=== PATIENT | female | born 1990 | race Caucasian/White ===

== ENCOUNTER 2018-04-18 08:08 | Inpatient (IN) | payer MEDICAID ==
[2018-04-17 12:15] LABS: ABSOLUTE EOSINOPHILS # (AUTO) 0.1 10^3/uL (0.0-0.6); ABSOLUTE LYMPHOCYTES (AUTO) 2.8 10^3/uL (0.5-4.7); ABSOLUTE MONOCYTES (AUTO) 0.8 10^3/uL (0.1-1.4); ABSOLUTE NEUT (AUTO) 11.3 10^3/uL (1.7-8.2); BASOPHILS % (AUTO) 0.2 % (0-2); EOSINOPHILS % (AUTO) 0.4 % (0-6); HEMATOCRIT 32.5 % (36.0-47.0); HEMOGLOBIN 10.9 g/dL (12.0-15.5); LYMPHOCYTES % (AUTO) 18.8 % (13-45); MEAN CORPUSCULAR HGB CONC 33.4 g/dL (32.0-36.0); MEAN CORPUSCULAR VOLUME 84 fl (80-97); PLATELET COUNT 260 10^3/uL (150-450); RED BLOOD COUNT 3.89 10^6/uL (3.72-5.28); RED CELL DISTRIBUTION WIDTH 15.5 % (11.5-14.0); SEGMENTED NEUTROPHILS % (AUTO) 75.6 % (42-78); TOTAL CELLS COUNTED % (AUTO) 100 %
[2018-04-17 12:42] LABS: APPEARANCE,URINE CLEAR; BILIRUBIN,URINE NEGATIVE (NEGATIVE); COLOR,URINE YELLOW; GLUCOSE, URINE NEGATIVE (NEGATIVE); KETONES,URINE NEGATIVE (NEGATIVE); LEUKOCYTE ESTERASE,URINE SMALL (NEGATIVE); NITRITE,URINE NEGATIVE (NEGATIVE); PROTEIN,URINE NEGATIVE (NEGATIVE); URINE SPECIFIC GRAVITY 1.012; UROBILINOGEN,URINE NEGATIVE mg/dL (<2.0)
[2018-04-17 13:24] LABS: URINE AMPHETAMINES SCREEN NEGATIVE; URINE BARBITURATES SCREEN NEGATIVE; URINE BENZODIAZEPINES SCREEN NEGATIVE; URINE COCAINE SCREEN NEGATIVE; URINE METHADONE SCREEN NEGATIVE; URINE PHENCYCLIDINE SCREEN NEGATIVE
[2018-04-17 13:33] LABS: URINE MARIJUANA (THC) SCREEN UNCONFIRMED POSITIVE
[~2018-04-18 08:08] MED LIST: AZITHROMYCIN 500 MG in DEXTROSE 5%-WATER 250 ML IV PRN; LIDOCAINE 0.5% INJ-PF (5 MG/ML) 50 ML SDV SUBCUT PRN; RINGERS SOLUTION,LACTATED 1,000 ML IV PRN
[2018-04-18] MEDS: LACTATED RINGERS 1000 ML IV PRN ×2 (09:34→17:14)
[2018-04-18] MEDS ORDERED: OXYTOCIN 10 UNIT/ML VIAL ONE (10:26)
[2018-04-18] MEDS ORDERED: FENTANYL CITRATE INJ/PF 100 MCG/2 ML AMPUL ONE (10:26)
[2018-04-18] MEDS ORDERED: OXYTOCIN/NORMAL SALINE 20 UNIT/1,000 ML RTUINJ ONE (10:27)
[2018-04-18] MEDS ORDERED: MIDAZOLAM 2 MG/2 ML INJ ONE ×2 (10:27→11:25)
[2018-04-18] MEDS ORDERED: MORPHINE SULFATE 10 MG/ML INJ ONE (10:27)
[2018-04-18] MEDS ORDERED: ONDANSETRON HCL INJ/PF 4 MG/2 ML SDV ONE (10:27)
[2018-04-18] MEDS ORDERED: BUPIVACAINE HCL/DEX-WATER/PF 15 MG/2 ML AMPULE ONE (10:29)
[2018-04-18] MEDS ORDERED: PROMETHAZINE HCL INJ 25 MG/1 ML VIAL IV PRN ×3 (11:31→12:02)
[2018-04-18] MEDS ORDERED: FENTANYL CITRATE INJ/PF 100 MCG/2 ML AMPUL IV PRN ×3 (11:31)
[2018-04-18] MEDS ORDERED: MORPHINE SULFATE 10 MG/ML INJ IV PRN (11:31)
[2018-04-18] MEDS ORDERED: OXYCODONE-ACETAMINOPHEN 5-325 MG TABLET PO PRN ×3 (11:31→12:02)
[2018-04-18] MEDS ORDERED: MEPERIDINE HCL/PF INJ 25 MG/1 ML DISP.SYRIN IV PRN (11:31)
[2018-04-18] MEDS ORDERED: DIPHENHYDRAMINE HCL 50 MG/ML VIAL IV PRN (11:31)
--- NOTE | 2018-04-18 11:55 | PDOC DELIVERY SUMMARY ---
Delivery Summary - Maternal Hx : II Hx # Term Pregnancies: 1 NAM: 04/25/18 Gestational Age: 39+0 Ruptured Membranes: AROM Time of Rupture: 11:24 Fluids: Clear - Delivery Presentation: Vertex Heart Rate Monitoring: Done Pre-Operatively Support Person Present: Yes - RUPALI NGUYEN([phone]) Location: OR : Scheduled, Repeat Placenta: Within Normal Limits Delivery of Placenta Date: 04/18/18 Delivery of Placenta Time: 11:26 - Medications Type of Anesthesia:: Spinal - Assess and Care Male Delivery of Date: 04/18/18 Delivery of Time: 11:25 at 1 minute: 8 at 5 minutes: 9 Preprinted Number On Band: [id number] Skin to Skin: No To Nursery At: 11:33 Mode of Transport: Bassinet Delivery Weight: 3,920 Delivery Length: 20.5 in - Delivery Personnel Public Services Assistant: JASON OLSEN RN: Charisse SHEFFIELD MD: MARBELLA REBOLLAR
--- NOTE | 2018-04-18 11:59 | Operative Report ---
Operative Report DATE OF SURGERY: 04/18/18 PREOPERATIVE DIAGNOSIS: Patient desires repeat to prevent risk from uterine rupture POSTOPERATIVE DIAGNOSIS: Same OPERATION: Repeat via low transverse uterine incision SURGEON: MARBELLA REBOLLAR ANESTHESIA: Spinal TISSUE REMOVED OR ALTERED: Placenta COMPLICATIONS: None ESTIMATED BLOOD LOSS: 400 cc INTRAOPERATIVE FINDINGS: Viable , normal uterus tubes and ovaries PROCEDURE: Patient was taken to the OR and placed in supine position after her spinal anesthesia. She is prepared and draped in sterile fashion. Miranda was placed for drainage of the bladder. Low transverse incision was made and carried down the level of the fascia. The fascial incision was made with knife and extended bilaterally with curved Stover scissors. The fascia was off the rectus muscles using sharp and blunt dissection. The rectus muscles are in the midline. The peritoneum was entered without incident. Bladder blade was placed in uterine segment was identified. A low transverse incision was made creating a bladder flap. Bladder blade was placed low transverse uterine incision was made with the csafe knife and extended with fingertips. The baby was delivered with some fundal pressure and the assistance of a Kiwi vacuum with pressure in the green with one pull and no pop offs.. Mouth and nose were suctioned free. The cord is doubly clamped and cut. Baby is passed off to the laundry agent in attendance. The placenta was manually extracted with trailing membranes. The uterus was externalized wrapped in a moist lap sponge. Uterine contents wiped free. Uterus was closed with a running locking layer of 0 chromic suture using the second layer to imbricate the first completing a double layer closure of the uterus. The serosa was closed with a running 2-0 chromic stitch. The pelvis was irrigated and suctioned free of fluid the uterus was replaced in the abdomen. The abdominal wall peritoneum was closed with running 2-0 chromic stitch. Fascia was closed with a running 0 Vicryl in 2 segments. Blue's layer was brought together with 0 plain gut stitch and the skin was closed with running subcuticular 4-0 undyed Vicryl stitch. The wound was dressed mother and baby did well.
[2018-04-18] MEDS ORDERED: DIPH/PERTUSS(ACELL)/TETANUS VAC/PF 0.5 ML SYR (>=10YO) IM PRN (12:02)
[2018-04-18] MEDS ORDERED: MEASLES,MUMPS&RUBELLA VACC/PF 0.5 ML VIAL SUBCUT PRN (12:02)
[2018-04-18] MEDS ORDERED: ACETAMINOPHEN 1,000 MG/100 ML RTUPB IV PRN (12:02)
[2018-04-18] MEDS ORDERED: RINGERS SOLUTION,LACTATED 1,000 ML IV PRN (12:02)
[2018-04-18] MEDS ORDERED: OXYTOCIN/NORMAL SALINE 20 UNIT/1,000 ML RTUINJ IV PRN (12:02)
[2018-04-18] MEDS ORDERED: ACETAMINOPHEN 325 MG TABLET PO PRN (12:02)
[2018-04-18] MEDS ORDERED: SIMETHICONE 80 MG TAB.CHEW PO PRN (12:02)
[2018-04-18] MEDS ORDERED: ACETAMINOPHEN 1,000 MG/100 ML RTUPB IV ONE (12:24)
[2018-04-18] MEDS: KETOROLAC TROMETHAMINE INJ/PF 30 MG/1 ML SDV IV SCH ×2 (15:07→21:22)
[2018-04-18] MEDS: HYDROMORPHONE HCL INJ/PF 2 MG/ML AMPULE IV PRN ×2 (15:08→21:56)
[2018-04-18] MEDS: GLYBURIDE 2.5 MG TABLET PO SCH (17:14)
[2018-04-18] MEDS: DOCUSATE SODIUM 100 MG CAPSULE PO SCH (17:14)
[2018-04-18] MEDS: OXYCODONE-ACETAMINOPHEN 5-325 MG TABLET PO PRN (19:10)
[2018-04-19] MEDS: OXYCODONE-ACETAMINOPHEN 5-325 MG TABLET PO PRN ×4 (04:41→19:24)
[2018-04-19 05:40] LABS: HEMATOCRIT 27.7 % (36.0-47.0); HEMOGLOBIN 9.3 g/dL (12.0-15.5); MEAN CORPUSCULAR HEMOGLOBIN 28.2 pg (27.0-33.4); MEAN CORPUSCULAR HGB CONC 33.5 g/dL (32.0-36.0); MEAN CORPUSCULAR VOLUME 84 fl (80-97); PLATELET COUNT 230 10^3/uL (150-450); RED BLOOD COUNT 3.29 10^6/uL (3.72-5.28); RED CELL DISTRIBUTION WIDTH 15.3 % (11.5-14.0); WHITE BLOOD COUNT 14.4 10^3/uL (4.0-10.5)
[2018-04-19] MEDS: KETOROLAC TROMETHAMINE INJ/PF 30 MG/1 ML SDV IV SCH (06:09)
[2018-04-19] MEDS: GLYBURIDE 2.5 MG TABLET PO SCH ×2 (08:15→17:47)
[2018-04-19] MEDS: PRENATAL VITAMIN W DHA CAPSULE PO SCH (09:19)
[2018-04-19] MEDS: DOCUSATE SODIUM 100 MG CAPSULE PO SCH ×2 (09:19→17:47)
--- NOTE | 2018-04-19 09:35 | PDOC PROGRESS REPORT ---
Subjective-OB Progress Note for:: 04/19/18 Physical Exam (OB) Vital Signs: Temp Pulse Resp BP Pulse Ox 97.9 F 71 18 132/79 H 100 04/19/18 08:04 04/19/18 08:04 04/19/18 08:04 04/19/18 08:04 04/19/18 08:04 Intake & Output 04/18/18 04/19/18 04/20/18 06:59 06:59 06:59 Intake Total 3958 Output Total 3050 Balance 908 Weight 113.4 kg - PIH/Pre-Eclampsia DTR's: 1 + Clonus: Negative Headache: Absent Epigastric Pain: No Visual Changes: No - Dressing Removed: No - opsite Incision: Dressing Closure Type: op site - Lochia Lochia Amount: Small 10-25 ml Lochia Color: Rubra/Red - Abdomen Description: Tender, Soft Hernia Present: No Bowel Sounds: Normoactive Flatus Presence: Present Stool: No Fundal Description: Firm, Midline Fundal Height: u/u - u/2 Objective-Diagnostic Laboratory: 04/19/18 05:32 04/19/18 05:32 WBC 14.4 H RBC 3.29 L Hgb 9.3 L Hct 27.7 L MCV 84 MCH 28.2 MCHC 33.5 RDW 15.3 H Plt Count 230
[2018-04-19] MEDS: IBUPROFEN 800 MG TABLET PO SCH ×3 (12:23→23:37)
[2018-04-19] MEDS ORDERED: MEASLES,MUMPS&RUBELLA VACC/PF 0.5 ML VIAL SUBCUT PRN (15:30)
[2018-04-19] MEDS ORDERED: DIPH/PERTUSS(ACELL)/TETANUS VAC/PF 0.5 ML SYR (>=10YO) IM PRN (15:30)
[2018-04-19] MEDS ORDERED: PROMETHAZINE HCL INJ 25 MG/1 ML VIAL IV PRN (15:30)
[2018-04-20] MEDS: OXYCODONE-ACETAMINOPHEN 5-325 MG TABLET PO PRN ×2 (02:25→08:49)
[2018-04-20] MEDS: IBUPROFEN 800 MG TABLET PO SCH ×2 (06:01→13:23)
[2018-04-20 08:44] VITALS: BP 125/79
[2018-04-20] MEDS: GLYBURIDE 2.5 MG TABLET PO SCH (08:48)
[2018-04-20] MEDS: PRENATAL VITAMIN W DHA CAPSULE PO SCH (09:19)
[2018-04-20] MEDS: DOCUSATE SODIUM 100 MG CAPSULE PO SCH (09:19)
--- NOTE | 2018-04-20 09:46 | PDOC PROGRESS REPORT ---
Subjective-OB Progress Note for:: 04/20/18 Subjective: POD#1 s/p Rpt . Type 2 DM, anxiety & depression, hx of +THC, smoker. Pt doing well this morning, denies complaints. Pt desires to go home today Physical Exam (OB) Vital Signs: Temp Pulse Resp BP Pulse Ox 98 F 78 16 125/79 99 04/20/18 08:43 04/20/18 08:43 04/20/18 08:43 04/20/18 08:43 04/20/18 08:43 Intake & Output 04/19/18 04/20/18 04/21/18 06:59 06:59 06:59 Intake Total 3958 750 Output Total 3050 Balance 908 750 - General General Appearance: Appears well, Alert In distress: None - PIH/Pre-Eclampsia DTR's: 1 + Clonus: Negative Headache: Absent Epigastric Pain: No Visual Changes: No - Dressing Removed: No Incision: Dressing Closure Type: op site - Lochia Lochia Amount: Scant < 10 ml Lochia Color: Rubra/Red - Abdomen Description: Tender, Soft, Round Hernia Present: No Fundal Description: Firm, Midline Fundal Height: u/u - u/2 - HEENT Head: Normocephalic - Respiratory Respiratory Status: No respiratory distress Chest Status: Nontender Breath sounds: Clear Chest Palpation: Normal - Cardiovascular Rhythm: Regular Heart Sounds: Normal auscultation - Abdominal Inspection: Normal Distension: No distension Tenderness: Nontender Abdominal Notes: +bowel sounds - Genitourinary Genitourinary Note: voiding - Extremities Upper extremity: Normal inspection Lower extremities: Edema - 1+ - Neurological Cognition: Normal Orientation: AAOx4 - Psychological Associated symptoms: Normal affect, Normal mood - Skin Skin Temperature: Warm Skin Moisture: Dry Objective-Diagnostic Laboratory: 04/19/18 05:32 Assessment and Plan(PN) - Assessment and Plan (1) Anemia, Is this a current diagnosis for this admission?: Yes (2) Delivery by elective caesarean section Is this a current diagnosis for this admission?: Yes (3) Depression with anxiety Is this a current diagnosis for this admission?: Yes (4) Marijuana abuse Is this a current diagnosis for this admission?: Yes (5) Qualifiers: Weeks of gestation: 39 weeks Qualified Code(s): Z3A.39 - 39 weeks gestation of Is this a current diagnosis for this admission?: Yes - Time Spent with Patient Time with patient: Less than 15 minutes Medications reviewed and adjusted accordingly: Yes - Disposition Anticipated Discharge: Home Within: within 24 hours
--- NOTE | 2018-04-20 09:50 | PDOC DISCHARGE SUMMARY ---
Final Diagnosis Discharge Date: 04/20/18 - Final Diagnosis (1) Anemia, Is this a current diagnosis for this admission?: Yes (2) Delivery by elective caesarean section Is this a current diagnosis for this admission?: Yes (3) Depression with anxiety Is this a current diagnosis for this admission?: Yes (4) Marijuana abuse Is this a current diagnosis for this admission?: Yes (5) Is this a current diagnosis for this admission?: Yes Discharge Data - Discharge Medication Prescriptions: Ibuprofen [Motrin 800 mg Tablet] 800 mg PO Q6 #60 tablet Oxycodone HCl/Acetaminophen [Percocet 5-325 mg Tablet] 1 tab PO Q4HP PRN #30 tablet PRN Reason: Home Medications: Pnv with Ca #68/Iron/FA#1/Dha [Virt-Pn Plus Softgel] 1 each PO DAILY 09/10/13 Insulin Aspart [Novolog Flexpen] 6 unit SUBCUT .LUNCH 04/17/18 Insulin NPH Human Isophane [Humulin N] 22 unit SQ QAM 04/17/18 Glyburide [Diabeta 2.5 mg Tablet] 2.5 mg PO BIDBS tablet 04/20/18 Ibuprofen [Motrin 800 mg Tablet] 800 mg PO Q6 #60 tablet 04/20/18 Oxycodone HCl/Acetaminophen [Percocet 5-325 mg Tablet] 1 tab PO Q4HP PRN #30 tablet 04/20/18 Reason(s) for Admission: Ceasarean Section-Repeat Procedures: NST, Ultrasound Intrapartum Procedure(s): : Low Cervical, Transverse - Diagnosis Test Laboratory: Temp Pulse Resp BP Pulse Ox 98 F 78 16 125/79 99 04/20/18 08:43 04/20/18 08:43 04/20/18 08:43 04/20/18 08:43 04/20/18 08:43 04/17/18 04/17/18 04/19/18 11:00 11:13 05:32 RBC 3.89 3.29 L Hgb 10.9 L 9.3 L Hct 32.5 L 27.7 L Urine Opiates Screen NEGATIVE - Discharge information/Instructions Discharge Activity: No Driving, No Lifting Over 10 Pounds, Pelvic Rest Discharge Diet: As Tolerated, Regular Disposition: HOME, SELF-CARE Follow up with: [facility] in: 1, Weeks
== END 2018-04-20 13:50 | disposition home or self-care (01) | DRG 786 ==
LOC: 2S 08:08
PROVIDERS: ADMIT Obstetrics & Gynecology; ATTEND Obstetrics & Gynecology
PROC: 10D00Z1 Extraction of Products of Conception, Low, Open Approach (ICD-10-PCS; principal; 2018-04-18 11:00)
DX: O34.211 Maternal care for low transverse scar from previous cesarean delivery (principal); O24.12 Pre-existing type 2 diabetes mellitus, in childbirth; O99.324 Drug use complicating childbirth; Z68.41 Body mass index [BMI] 40.0-44.9, adult; O99.824 Streptococcus B carrier state complicating childbirth; O99.02 Anemia complicating childbirth; D64.9 Anemia, unspecified; F12.980 Cannabis use, unspecified with anxiety disorder; O99.344 Other mental disorders complicating childbirth; F41.8 Other specified anxiety disorders; N85.8 Other specified noninflammatory disorders of uterus; E11.9 Type 2 diabetes mellitus without complications; O99.214 Obesity complicating childbirth; E66.9 Obesity, unspecified; O99.334 Smoking (tobacco) complicating childbirth; F17.210 Nicotine dependence, cigarettes, uncomplicated; Z3A.39 39 weeks gestation of pregnancy; Z37.0 Single live birth; Z79.84 Long term (current) use of oral hypoglycemic drugs
CPT/HCPCS: 1961; 36415; 59025; 80307; 81001; 82962; 85025; 85027; 86850; 86870; 86900; 86901; 86920; 86922; 94799; J0131; J0456; J1170; J1885; J2250; J2270; J2405; J2590; J3010; J3490; J7060; J7120

== ENCOUNTER 2020-01-21 10:57 | Outpatient (CLI) | payer MEDICAID ==
--- NOTE | 2020-01-21 12:51 | Non Stress Test Report ---
Non Stress Test Datetime Report Generated by CPN: 01/21/2020 12:50 DEMOGRAPHIC EGA NST: 34.2 VITAL SIGNS Temperature - NST: 98.4 Pulse - NST: 75 RESP - NST: 18 NBPSYS NST: 118 NBPDIA NST: 67 MONITORING Monitor Explained: Monitor Explained; Test Explained; Patient Verbalized Understanding Time on Monitor: 01/21/2020 12:22 Time off Monitor: 01/21/2020 12:42 NST Duration: 20 NST INTERVENTIONS NST Interventions: PO Hydration Physician Notified NST: K. Grace, CNM BABY A: [id number] BABY A Movement : Present Contraction Frequency : 0 FHR Baseline : 140 Accelerations : 15X15 Decelerations : None Variability : Moderate 6-25bpm NST Review: Meets Criteria for Reactive NST NST Review and Verified By : B Baidy RN NST Results: Reactive BABY B Movement: Present FHR Baseline: 140 Accelerations: 15X15 Decelerations: None Variability: Moderate 6-25bpm NST Review: Meets Criteria for Reactive NST NST Reviewed And Verified By: B Baidy RN NST Results: Reactive NST REPORT Report Trigger: Send Report
== END 2020-01-21 12:48 | disposition home or self-care (01) ==
LOC: LC 10:57
PROVIDERS: ATTEND Obstetrics & Gynecology
DX: Z34.93 Encounter for supervision of normal pregnancy, unspecified, third trimester (principal)
CPT/HCPCS: 59025

== ENCOUNTER 2020-02-01 13:05 | Observation (INO) | payer MEDICAID ==
[2020-02-01] MEDS ORDERED: RINGERS SOLUTION,LACTATED 1,000 ML IV PRN ×2 (13:51→18:18)
[2020-02-01] MEDS ORDERED: MAG HYDROX/AL HYDROX/SIMETH SUSP 30 ML UDCUP ONE (14:05)
[2020-02-01 14:29] LABS: APPEARANCE,URINE CLEAR; BILIRUBIN,URINE NEGATIVE (NEGATIVE); COLOR,URINE YELLOW; GLUCOSE, URINE NEGATIVE (NEGATIVE); KETONES,URINE 20 mg/dL (NEGATIVE); LEUKOCYTE ESTERASE,URINE TRACE (NEGATIVE); NITRITE,URINE NEGATIVE (NEGATIVE); PROTEIN,URINE 100 mg/dL (NEGATIVE); UROBILINOGEN,URINE NEGATIVE mg/dL (<2.0)
[2020-02-01] MEDS ORDERED: LIDOCAINE 2% VISCOUS SOLN 15 ML UDCUP PO ONE (14:30)
[2020-02-01] MEDS ORDERED: METOCLOPRAMIDE HCL ORAL SOLN 10 MG/10 ML UDCUP PO ONE (14:30)
[2020-02-01] MEDS ORDERED: MAG HYDROX/AL HYDROX/SIMETH SUSP 30 ML UDCUP PO ONE (14:30)
[2020-02-01 14:43] LABS: URINE AMPHETAMINES SCREEN NEGATIVE; URINE BARBITURATES SCREEN NEGATIVE; URINE BENZODIAZEPINES SCREEN NEGATIVE; URINE COCAINE SCREEN NEGATIVE; URINE METHADONE SCREEN NEGATIVE; URINE PHENCYCLIDINE SCREEN NEGATIVE
[2020-02-01 14:56] LABS: URINE MARIJUANA (THC) SCREEN UNCONFIRMED POSITIVE
[2020-02-01] MEDS ORDERED: HYDROXYZINE PAMOATE 50 MG CAPSULE PO ONE (15:07)
[2020-02-01] MEDS ORDERED: ACETAMINOPHEN 325 MG TABLET PO ONE (15:08)
[2020-02-01] MEDS ORDERED: HYDROXYZINE PAMOATE 50 MG CAPSULE ONE (15:10)
[2020-02-01] MEDS ORDERED: ACETAMINOPHEN 325 MG TABLET ONE (15:11)
[2020-02-01] MEDS ORDERED: BETAMET ACET/BETAMET NA INJ 6 MG/1 ML IM SCH (18:13)
--- NOTE | 2020-02-01 18:16 | Admission Physical ---
Datetime Report Generated by CPN: 02/01/2020 18:16 CURRENT ADMISSION Chief Complaint Other: upper epigastric pain and irregular contractions. Indication for Induction: Not Applicable; Indicated by Testing Indication for Induction- Other: twin gestation, Baby A has a BPP of 6/8. Baby B has a BPP of 8/8. babies have been difficulty to maintain tracings on the monitor. Admit Impression : , Intrauterine Admit Impression- Other: observation and repeat bpp in the AM. Admit Plan: Admit to Unit; Observation/Evaluation Admit Plan- Other: If repeat bpp in AM is reassuring will discharge home and have pt keep follow up for delivery on Sep 3 ALLERGIES Medication Allergies: cephalexin/RASH (02/01/2020) OBSTETRICAL HISTORY EDC: 03/01/2020 00:00 : 3 Para: 2 Term: 2 Livin Cesareans: 2 PHYSICAL EXAM General: Normal HEENT: Normal Neurologic: Normal Thyroid: Normal Heart: Normal Lungs: Normal Breast: Normal Back: Normal Abdomen: Normal Genitourinary Exam: Normal Extremities: Normal DTRs: Normal Pelvic Type: Adequate Vital Signs: Reviewed VAGINAL EXAM Dilatation: 1 Effacement: 25 Station: -3 MEMBRANES Pooling: Negative FETUS A Monitoring: External US FHR- Baseline: 130 Variability: Moderate 6-25bpm Accelerations: 10X10 Decelerations: None FHR Category: Category II Admit Comment: will keep patient overnight for observation. Give ACS protocol as needed. If indication for delivery arises due to monitoring will proceed with repeat c/section as planned. FETUS B Monitoring: External US Variability: Moderate 6-25bpm Accelerations: 10X10 Decelerations: None FHR Category: Category II INFORMED CONSENT Signature: with User ID: [email or web address]
[2020-02-01] MEDS ORDERED: BETAMET ACET/BETAMET NA INJ 6 MG/1 ML ONE (18:34)
[2020-02-01 18:45] LABS: HEMATOCRIT 27.6 % (36.0-47.0); HEMOGLOBIN 8.9 g/dL (12.0-15.5); MEAN CORPUSCULAR HEMOGLOBIN 24.2 pg (27.0-33.4); MEAN CORPUSCULAR HGB CONC 32.1 g/dL (32.0-36.0); MEAN CORPUSCULAR VOLUME 75 fl (80-97); PLATELET COUNT 180 10^3/uL (150-450); RED BLOOD COUNT 3.66 10^6/uL (3.72-5.28); RED CELL DISTRIBUTION WIDTH 15.8 % (11.5-14.0); WHITE BLOOD COUNT 12.2 10^3/uL (4.0-10.5)
[2020-02-01] MEDS ORDERED: FAMOTIDINE INJ/PF 20 MG/2 ML SDV IV SCH (18:45)
[2020-02-01] MEDS ORDERED: PROMETHAZINE HCL INJ 25 MG/1 ML VIAL IV ONE (19:00)
--- NOTE | 2020-02-01 19:45 | Left Against Medical Advice ---
Against Medical Advice Admission Date/Time: 02/01/20 18:21 Primary Care Provider: ANTONIETTA PEÑALOZA MD Date of Patient Emigration: 02/01/20 - Diagnosis: (1) questionable status Is this a current diagnosis for this admission?: Yes (2) Epigastric abdominal pain affecting in third trimester Is this a current diagnosis for this admission?: Yes (3) Marijuana abuse Is this a current diagnosis for this admission?: Yes (4) Is this a current diagnosis for this admission?: Yes - Summary: Summary: Please see Admission and Progress Notes as well. ENRRIQUE MCGINNIS is a 29 F, who LEFT AGAINST MEDICAL ADVICE. The Patient was admitted on 02/01/20 18:21. for monitoring and ACS protocol secondary to a bpp of 6/8 on one twin. She was advised of plan for observation and monitoring of twin gestation to reassure us of status. Patient initally agreed to observation and did get the first dose of ACS. However, she and her partner decided a few minutes later that they needed to leave due to patient's discomfort. She was counsled on the risks and the concerns of status. They voiced understanding and did agree to return tomorrow for repeat ACS injection for benefit.
--- NOTE | 2020-02-01 19:48 | RADIOLOGY REPORT (SQ) ---
EXAM DESCRIPTION: U/S PROFILE W/O STRESS IMAGES COMPLETED DATE/TIME: 02/01/2020 5:09 pm; 02/01/2020 7:13 pm REASON FOR STUDY: twins unable to trace, 35.6 ctx; BPP TWINS UNABLE TO TRACE, 35.6 COMPARISON: None. TECHNIQUE: Limited bauer-scale realtime and static images of the fetus to measure specified parameter s. LIMITATIONS: None. FINDINGS: Twin gestations are present. A HEART RATE: 149 beats per minute. MVP: 4.5 cm. Vertex presentation. 6/8 score on biophysical profile. B HEART RATE: 153 beats per minute. MVP: 4.7 cm. Vertex presentation. 8/8 score on biophysical profile. OTHER: No other significant finding. IMPRESSION: 1. Twin gestations. 2. Baby A 6/8 on biophysical profile (paper inserter does not indicate which category was 0). 3. Baby B 8/8 on biophysical profile. Trimester of : Third - 28 weeks to delivery COMMENT: BREATHING MOVEMENTS: 2 POINTS: PRESENT 0 POINTS: ABSENT MOTION: 2 POINTS: PRESENT 0 POINTS: ABSENT TONE: 2 POINTS: PRESENT 0 POINTS: ABSENT AMNIOTIC FLUID VOLUME: 2 POINTS: LARGEST POCKET GREATER THAN 2 CM DEPTH. 0 POINTS: NO POCKET OF 2 CM. TECHNICAL DOCUMENTATION: JOB ID: [id number] 2010 [employer]- All Rights Reserved Reading location - IP/workstation name: [email or web address]
--- NOTE | 2020-02-01 19:48 | RADIOLOGY REPORT (SQ) ---
EXAM DESCRIPTION: U/S PROFILE W/O STRESS IMAGES COMPLETED DATE/TIME: 02/01/2020 5:09 pm; 02/01/2020 7:13 pm REASON FOR STUDY: twins unable to trace, 35.6 ctx; BPP TWINS UNABLE TO TRACE, 35.6 COMPARISON: None. TECHNIQUE: Limited bauer-scale realtime and static images of the fetus to measure specified parameter s. LIMITATIONS: None. FINDINGS: Twin gestations are present. A HEART RATE: 149 beats per minute. MVP: 4.5 cm. Vertex presentation. 6/8 score on biophysical profile. B HEART RATE: 153 beats per minute. MVP: 4.7 cm. Vertex presentation. 8/8 score on biophysical profile. OTHER: No other significant finding. IMPRESSION: 1. Twin gestations. 2. Baby A 6/8 on biophysical profile (financial representative does not indicate which category was 0). 3. Baby B 8/8 on biophysical profile. Trimester of : Third - 28 weeks to delivery COMMENT: BREATHING MOVEMENTS: 2 POINTS: PRESENT 0 POINTS: ABSENT MOTION: 2 POINTS: PRESENT 0 POINTS: ABSENT TONE: 2 POINTS: PRESENT 0 POINTS: ABSENT AMNIOTIC FLUID VOLUME: 2 POINTS: LARGEST POCKET GREATER THAN 2 CM DEPTH. 0 POINTS: NO POCKET OF 2 CM. TECHNICAL DOCUMENTATION: JOB ID: [id number] 2010 [employer]- All Rights Reserved Reading location - IP/workstation name: [email or web address]
== END 2020-02-01 19:24 | disposition left against medical advice (07) ==
LOC: LC 13:05 → LR 18:21
PROVIDERS: ADMIT Obstetrics & Gynecology; ATTEND Obstetrics & Gynecology
DX: O36.8931 Maternal care for other specified fetal problems, third trimester, fetus 1 (principal); O31.8X31 Other complications specific to multiple gestation, third trimester, fetus 1; O26.893 Other specified pregnancy related conditions, third trimester; R10.13 Epigastric pain; O30.003 Twin pregnancy, unspecified number of placenta and unspecified number of amniotic sacs, third trimester; O99.323 Drug use complicating pregnancy, third trimester; F12.10 Cannabis abuse, uncomplicated; O47.03 False labor before 37 completed weeks of gestation, third trimester; Z3A.35 35 weeks gestation of pregnancy
CPT/HCPCS: 59025; 96372; 86900; 86901; 36415; 86870; 86850; 82962; 85027; 81005; 86592; 80307; 76819; G0480 ×2; J3490 ×5; J0702; 80349

== ENCOUNTER 2020-02-02 18:59 | Outpatient (CLI) | payer MEDICAID ==
[2020-02-02] MEDS ORDERED: BETAMET ACET/BETAMET NA INJ 6 MG/1 ML IM PRN (20:11)
[2020-02-02] MEDS ORDERED: BETAMET ACET/BETAMET NA INJ 6 MG/1 ML ONE (20:17)
== END 2020-02-02 21:00 | disposition home or self-care (01) ==
LOC: LC 18:59
PROVIDERS: ATTEND Obstetrics & Gynecology
DX: O47.1 False labor at or after 37 completed weeks of gestation (principal); Z3A.37 37 weeks gestation of pregnancy
CPT/HCPCS: 59025; J0702

== ENCOUNTER 2020-02-06 07:45 | Inpatient (IN) | payer MEDICAID ==
[2020-02-04 18:10] LABS: ABSOLUTE LYMPHOCYTES (AUTO) 2.7 10^3/uL (0.5-4.7); ABSOLUTE MONOCYTES (AUTO) 1.1 10^3/uL (0.1-1.4); BASOPHILS % (AUTO) 0.3 % (0-2); EOSINOPHILS % (AUTO) 0.2 % (0-6); HEMOGLOBIN 9.2 g/dL (12.0-15.5); LYMPHOCYTES % (AUTO) 19.4 % (13-45); MEAN CORPUSCULAR HEMOGLOBIN 24.2 pg (27.0-33.4); MEAN CORPUSCULAR HGB CONC 31.9 g/dL (32.0-36.0); MEAN CORPUSCULAR VOLUME 76 fl (80-97); MONOCYTES % (AUTO) 7.9 % (3-13); PLATELET COUNT 232 10^3/uL (150-450); RED BLOOD COUNT 3.81 10^6/uL (3.72-5.28); RED CELL DISTRIBUTION WIDTH 15.7 % (11.5-14.0); SEGMENTED NEUTROPHILS % (AUTO) 72.2 % (42-78); TOTAL CELLS COUNTED % (AUTO) 100 %; WHITE BLOOD COUNT 13.8 10^3/uL (4.0-10.5)
[2020-02-04 18:11] LABS: URINE AMPHETAMINES SCREEN NEGATIVE; URINE BARBITURATES SCREEN NEGATIVE; URINE BENZODIAZEPINES SCREEN NEGATIVE; URINE COCAINE SCREEN NEGATIVE; URINE METHADONE SCREEN NEGATIVE; URINE PHENCYCLIDINE SCREEN NEGATIVE
[2020-02-04 18:32] LABS: URINE MARIJUANA (THC) SCREEN UNCONFIRMED POSITIVE
[2020-02-04 18:37] LABS: APPEARANCE,URINE CLEAR; BILIRUBIN,URINE NEGATIVE (NEGATIVE); COLOR,URINE YELLOW; GLUCOSE, URINE NEGATIVE (NEGATIVE); KETONES,URINE NEGATIVE (NEGATIVE); LEUKOCYTE ESTERASE,URINE SMALL (NEGATIVE); NITRITE,URINE NEGATIVE (NEGATIVE); PROTEIN,URINE 100 mg/dL (NEGATIVE); URINE SPECIFIC GRAVITY 1.011; UROBILINOGEN,URINE NEGATIVE mg/dL (<2.0)
[~2020-02-06 07:45] MED LIST changes: -AZITHROMYCIN 500 MG in DEXTROSE 5%-WATER 250 ML IV PRN; +LACTATED RINGERS 1000 ML IV PRN; -LIDOCAINE 0.5% INJ-PF (5 MG/ML) 50 ML SDV SUBCUT PRN; +NORMAL SALINE 250 ML IV PRN; -RINGERS SOLUTION,LACTATED 1,000 ML IV PRN
[2020-02-06] MEDS ORDERED: CLINDAMYCIN 900 MG/D5W RTU 900 MG/50 ML RTUPB IV PRN (08:28)
[2020-02-06] MEDS ORDERED: RINGERS SOLUTION,LACTATED 1,000 ML IV PRN ×2 (08:52→13:01)
[2020-02-06] MEDS ORDERED: MEPERIDINE HCL/PF INJ 25 MG/1 ML DISP.SYRIN IV PRN ×2 (11:41→14:08)
[2020-02-06] MEDS ORDERED: FENTANYL CITRATE INJ/PF 100 MCG/2 ML AMPUL IV PRN ×6 (11:41→14:08)
[2020-02-06] MEDS ORDERED: OXYCODONE-ACETAMINOPHEN 5-325 MG TABLET PO PRN ×5 (11:41→14:08)
[2020-02-06] MEDS ORDERED: DIPHENHYDRAMINE HCL 50 MG/ML VIAL IV PRN ×2 (11:41→14:08)
[2020-02-06] MEDS ORDERED: PROMETHAZINE HCL INJ 25 MG/1 ML VIAL IV PRN ×5 (11:41→14:08)
[2020-02-06] MEDS ORDERED: ONDANSETRON HCL INJ/PF 4 MG/2 ML SDV IV PRN ×2 (11:41→14:08)
[2020-02-06] MEDS ORDERED: FENTANYL CITRATE INJ/PF 100 MCG/2 ML AMPUL ONE (12:45)
[2020-02-06] MEDS ORDERED: KETOROLAC TROMETHAMINE INJ/PF 30 MG/1 ML SDV ONE (12:45)
[2020-02-06] MEDS ORDERED: MIDAZOLAM 2 MG/2 ML INJ ONE (12:45)
[2020-02-06] MEDS ORDERED: OXYTOCIN/0.9 % SODIUM CHLORIDE 30 UNIT/500 ML RTUINJ ONE (12:45)
[2020-02-06] MEDS ORDERED: ONDANSETRON HCL INJ/PF 4 MG/2 ML SDV ONE (12:45)
[2020-02-06] MEDS ORDERED: ACETAMINOPHEN 1,000 MG/100 ML RTUPB IV ONE (12:45)
[2020-02-06] MEDS ORDERED: OXYTOCIN 10 UNIT/ML VIAL ONE (12:45)
[2020-02-06] MEDS ORDERED: ACETAMINOPHEN 325 MG TABLET PO PRN (13:01)
[2020-02-06] MEDS ORDERED: DIPH/PERTUSS(ACELL)/TETANUS VAC/PF 0.5 ML SYR (>=10YO) IM PRN (13:01)
[2020-02-06] MEDS ORDERED: OXYTOCIN/0.9 % SODIUM CHLORIDE 30 UNIT/500 ML RTUINJ IV PRN (13:01)
[2020-02-06] MEDS ORDERED: MEASLES,MUMPS&RUBELLA VACC/PF 0.5 ML VIAL SUBCUT PRN (13:01)
--- NOTE | 2020-02-06 13:13 | Operative Report ---
Operative Report DATE OF SURGERY: 02/06/20 PREOPERATIVE DIAGNOSIS: Intrauterine diamniotic dichorionic twin at 3 7+ weeks. Type II diabetes in on insulin. History of prior CS x2. Unwanted fertility POSTOPERATIVE DIAGNOSIS: Same as above with addition of scar tissue anterior abdominal wall, rectus fascia OPERATION: Repeat section SURGEON: ELIANA WAGONER ANESTHESIA: Spinal TISSUE REMOVED OR ALTERED: Placenta x2 COMPLICATIONS: None ESTIMATED BLOOD LOSS: 900cc INTRAOPERATIVE FINDINGS: Normal appearing large uterus. THere was a small adhesion between the omentum and the serosa of the uterus anteriorly. Bilateral fallopian tubes are normal as are the ovaries. Baby A: Viable female infant - vigorous at delivery after deliver from vertex. Clear fluid and anterior placenta. Baby B: VIable male - vigorous at delivery after delivering from vertex presentation. Clear fluid and placenta posterior. PROCEDURE: IV fluids: per anesthesia record Urinary output: 300 cc clear yellow urine in quiros collecting system Position: To recovery room in stable condition Description of procedure: The patient was taken to the operating room and spinal anesthesia was administered and found to be adequate. She was then placed on the OR table in the supine position with a slight leftward tilt. Patient was prepped and draped in usual sterile fashion after the panis was elevated with tape system. Clindamycin 900mg was given IV prior to the procedure for infection prophylaxis. Timeout was taken. A Pfannenstiel skin incision was then made approximately 3 cm above the pubic symphysis and carried down to level the rectus fascia. The rectus fascia was then nicked in the midline with a scalpel and the fascial incision was extended laterally with use of curved Stover scissors. The rectus fascia was then grasped with 2 Kocker clamps elevated and the underlying rectus muscle was dissected off both bluntly and sharply. Scar tissue noted as above. Any bleeding controlled with cautery. The rectus muscles were then split in the midline and the peritoneum was entered. The peritoneal incision was then extended by manually stretching the peritoneum. The bladder blade was positioned. Bladder flap created and bladder blade replaced. The bladder was noted to be out of harm's way. An jessica retractor was positioned. A scalpel was then used in the lower uterine for the hysterotomy, slowly until amniotomy was obtained a large amount of fluid was noted. The uterine incision was then manually stretched. The A was noted to be in vertex postion. The head was delivered with minmal difficulty. The shoulders and the rest of the body f ollowed immediately. The cord was cut clamped and the was handed off to the nurse awaiting. was crying prior to hand off. B was noted to be in vertex postion. Amniotomy was obtained and the head was delivered with minmal difficulty. The shoulders and the rest of the body followed immediately. The cord was cut clamped and the infant was handed off to the nurse awaiting. Infant was crying prior to hand off. The placentas were manually delivered. Using a lap gauze the uterus was cleared of all clots and debris. The uterus was then exteriorized and a bladder blade was repositioned. The uterine incision was then closed with 0 Chromic suture in a running locked fashion. A second layer of the same suture was used in a running locked imbricated fashion. The uterine incision was inspected and noted to be hemostatic. Retractor was removed. The posterior aspect of the uterus was then inspected and anatomy was seen as above. The right fallopian tube was identified and traced to the fimbriated end. A filshie clip was placed approximately 2 cm from the uterine cornu. Clip surrounded the tube in its entirety. Blanching noted and hemostasis. The left fallopian tube was thiago ntified and traced to the fimbriated end. A filshie clip was placed approximately 2 cm from the uterine cornu. Clip surrounded the tube in its entirety. Blanching noted and hemostasis. The uterus was returned to its normal anatomic position within the abdominal cavity. Warm saline irrigation was used to clear all clots and debris from the abdomen. The uterine incision was inspected once more and noted to remain hemostatic. The bladder blade was removed and the peritoneum was closed with 2-0 chromic in a running fashion. The rectus muscles were then reapproximated and the rectus fascia was closed with a #1 PDS in a running fashion. The subcutaneous tissue was then inspected and any bleeding was controlled with Bovie electrocautery. The subcutaneous tissue was then closed with 2-0 Plain Gut suture in a running fashion. The skin was then closed with 3-0 Monocryl in a running subcuticular fashion. The skin incision was then clean dried and Dermabond was applied over the skin incision. All instrument sponge and needle counts were correct x3 for the procedure the patient tolerated the procedure well. She will proceed to recovery room in stable condition
--- NOTE | 2020-02-06 13:15 | PDOC DELIVERY SUMMARY ---
Delivery Summary - Maternal Hx : III NAM: 03/01/20 Gestational Age: 37 Risk Factors: Other - Di-di twin gestion at 37 wks and DM II on insulin - Delivery Labor: Not In Labor Presentation: Vertex Heart Rate Monitoring: Done Pre-Operatively Support Person Present: Yes Location: OR : Scheduled Placenta: Within Normal Limits Number of Vessels (Cord): 3 Estimated Blood Loss: 900 cc - Medications Type of Anesthesia:: Spinal - Delivery Personnel RN: diogo MD: ELIANA WAGONER
[2020-02-06] MEDS ORDERED: MORPHINE SULFATE 10 MG/ML INJ ONE (14:06)
[2020-02-06] MEDS ORDERED: HYDROMORPHONE HCL INJ/PF 2 MG/ML AMPULE ONE (14:38)
[2020-02-06] MEDS ORDERED: PROMETHAZINE HCL INJ 25 MG/1 ML VIAL ONE (14:38)
[2020-02-06] MEDS: HYDROMORPHONE HCL INJ/PF 2 MG/ML AMPULE IV PRN ×2 (14:42→19:43)
[2020-02-06] MEDS: DOCUSATE SODIUM 100 MG CAPSULE PO SCH (17:06)
[2020-02-06] MEDS: OXYCODONE-ACETAMINOPHEN 5-325 MG TABLET PO PRN ×2 (17:06→22:43)
[2020-02-06] MEDS: KETOROLAC TROMETHAMINE INJ/PF 30 MG/1 ML SDV IV SCH (21:27)
[2020-02-07] MEDS: OXYCODONE-ACETAMINOPHEN 5-325 MG TABLET PO PRN ×4 (05:19→21:28)
[2020-02-07] MEDS: KETOROLAC TROMETHAMINE INJ/PF 30 MG/1 ML SDV IV SCH (05:19)
[2020-02-07] MEDS: SIMETHICONE 80 MG TAB.CHEW PO PRN ×2 (07:25→16:38)
[2020-02-07] MEDS: HYDROMORPHONE HCL INJ/PF 2 MG/ML AMPULE IV PRN ×2 (07:25→13:14)
[2020-02-07 08:05] LABS: HEMATOCRIT 27.6 % (36.0-47.0); MEAN CORPUSCULAR HEMOGLOBIN 24.6 pg (27.0-33.4); MEAN CORPUSCULAR HGB CONC 32.8 g/dL (32.0-36.0); MEAN CORPUSCULAR VOLUME 75 fl (80-97); PLATELET COUNT 220 10^3/uL (150-450); RED BLOOD COUNT 3.67 10^6/uL (3.72-5.28); RED CELL DISTRIBUTION WIDTH 15.8 % (11.5-14.0); WHITE BLOOD COUNT 14.9 10^3/uL (4.0-10.5)
[2020-02-07] MEDS: DOCUSATE SODIUM 100 MG CAPSULE PO SCH ×2 (11:04→18:05)
[2020-02-07] MEDS: PRENATAL VITAMIN W DHA CAPSULE PO SCH (11:04)
[2020-02-07] MEDS: IBUPROFEN 800 MG TABLET PO SCH ×2 (13:06→21:28)
--- NOTE | 2020-02-07 15:18 | PDOC PROGRESS REPORT ---
Subjective-OB Progress Note for:: 02/07/20 Subjective: reports bleeding slowing, pain controlled with current meds. denies needs Physical Exam (OB) Vital Signs: Temp Pulse Resp BP Pulse Ox 98.4 F 86 16 131/68 H 99 02/07/20 11:12 02/07/20 11:12 02/07/20 11:12 02/07/20 11:12 02/07/20 11:12 Intake & Output 02/06/20 02/07/20 02/08/20 06:59 06:59 06:59 Intake Total 1080 420 Output Total 4100 Balance -3020 420 Weight 119.3 kg - Dressing Removed: Yes Incision: Dressing - intact - Maternal Morbidity 59. Maternal Morbidity (serious complications experinced by the mother associated with labor and delivery: None of the above - Abdomen Description: Tender, Soft Hernia Present: No Fundal Description: Firm, Midline Fundal Height: u/u - u/2 - Abdominal Distension: No distension - Extremities Lower extremities: Roshan's sign - neg Calf: Normal, Nontender Objective-Diagnostic Laboratory: 02/07/20 07:01 02/07/20 07:01 WBC 14.9 H RBC 3.67 L Hgb 9.0 L Hct 27.6 L MCV 75 L MCH 24.6 L MCHC 32.8 RDW 15.8 H Plt Count 220 Assessment and Plan(PN) - Time Spent with Patient Time with patient: Less than 15 minutes - Disposition Anticipated Discharge Disposition: Home, Self Care Anticipated Discharge Timeframe: within 48 hours
[2020-02-08] MEDS: OXYCODONE-ACETAMINOPHEN 5-325 MG TABLET PO PRN ×4 (01:48→15:43)
[2020-02-08] MEDS: IBUPROFEN 800 MG TABLET PO SCH ×2 (05:45→15:43)
[2020-02-08] MEDS: PRENATAL VITAMIN W DHA CAPSULE PO SCH (09:30)
[2020-02-08] MEDS: DOCUSATE SODIUM 100 MG CAPSULE PO SCH (09:30)
--- NOTE | 2020-02-08 12:02 | PDOC DISCHARGE SUMMARY ---
Impression - Admit/DC Date/PCP Admission Date/Primary Care Provider: 02/06/20 08:32 NO LOCALMD Discharge Date: 02/08/20 - Discharge Diagnosis (1) Encounter for female sterilization procedure Is this a current diagnosis for this admission?: Yes (2) Insulin dependent diabetes mellitus Is this a current diagnosis for this admission?: Yes (3) Twin delivery by Is this a current diagnosis for this admission?: Yes (4) Anemia, Is this a current diagnosis for this admission?: Yes - Additional Information Discharge Diet: Regular, Diabetic Discharge Activity: Balance Activity w/Rest, No Lifting Over 10 Pounds, No Lifting/Push/Pulling, Pelvic Rest, No tub bath Referrals: LOCALMD,NO [Primary Care Provider] - Prescriptions: Ibuprofen [Motrin 800 mg Tablet] 800 mg PO Q8HP PRN #90 tablet PRN Reason: Oxycodone HCl/Acetaminophen [Percocet 5-325 mg Tablet] 1 tab PO Q4HP PRN #30 tablet PRN Reason: Home Medications: Pnv with Ca #68/Iron/FA#1/Dha [Virt-Pn Plus Softgel] 1 each PO DAILY 09/10/13 Docusate Sodium [Colace 100 mg Capsule] 100 mg PO BID capsule 02/08/20 Ibuprofen [Motrin 800 mg Tablet] 800 mg PO Q8HP PRN #90 tablet 02/08/20 Oxycodone HCl/Acetaminophen [Percocet 5-325 mg Tablet] 1 tab PO Q4HP PRN #30 tablet 02/08/20 Hospital Course 59. Maternal Morbidity (serious complications experinced by the mother associated with labor and delivery: None of the above Results Laboratory Results: WBC 14.9 10^3/uL (4.0-10.5) H 02/07/20 07:01 RBC 3.67 10^6/uL (3.72-5.28) L 02/07/20 07:01 Hgb 9.0 g/dL (12.0-15.5) L 02/07/20 07:01 Hct 27.6 % (36.0-47.0) L 02/07/20 07:01 MCV 75 fl (80-97) L 02/07/20 07:01 MCH 24.6 pg (27.0-33.4) L 02/07/20 07:01 MCHC 32.8 g/dL (32.0-36.0) 02/07/20 07:01 RDW 15.8 % (11.5-14.0) H 02/07/20 07:01 Plt Count 220 10^3/uL (150-450) 02/07/20 07:01 Lymph % (Auto) 19.4 % (13-45) 02/04/20 17:20 Tate % (Auto) 7.9 % (3-13) 02/04/20 17:20 Eos % (Auto) 0.2 % (0-6) 02/04/20 17:20 Baso % (Auto) 0.3 % (0-2) 02/04/20 17:20 Absolute Neuts (auto) 10.0 10^3/uL (1.7-8.2) H 02/04/20 17:20 Absolute Lymphs (auto) 2.7 10^3/uL (0.5-4.7) 02/04/20 17:20 Absolute Monos (auto) 1.1 10^3/uL (0.1-1.4) 02/04/20 17:20 Absolute Eos (auto) 0.0 10^3/uL (0.0-0.6) 02/04/20 17:20 Absolute Basos (auto) 0.0 10^3/uL (0.0-0.2) 02/04/20 17:20 Seg Neutrophils % 72.2 % (42-78) 02/04/20 17:20 POC Glucose 148 mg/dL (70-110) H 02/08/20 11:36 Urine Color YELLOW 02/04/20 17:20 Urine Appearance CLEAR 02/04/20 17:20 Urine pH 7.0 (5.0-9.0) 02/04/20 17:20 Ur Specific [place] 1.011 02/04/20 17:20 Urine Protein 100 mg/dL (NEGATIVE) H 02/04/20 17:20 Urine Glucose (UA) NEGATIVE mg/dL (NEGATIVE) 02/04/20 17:20 Urine Ketones NEGATIVE mg/dL (NEGATIVE) 02/04/20 17:20 Urine Blood NEGATIVE (NEGATIVE) 02/04/20 17:20 Urine Nitrite NEGATIVE (NEGATIVE) 02/04/20 17:20 Urine Bilirubin NEGATIVE (NEGATIVE) 02/04/20 17:20 Urine Urobilinogen NEGATIVE mg/dL (<2.0) 02/04/20 17:20 Ur Leukocyte Esterase SMALL (NEGATIVE) H 02/04/20 17:20 Urine WBC (Auto) 3 /HPF 02/04/20 17:20 Urine RBC (Auto) 1 /HPF 02/04/20 17:20 Squamous Epi Cells Auto 1 /HPF 02/04/20 17:20 Urine Mucus (Auto) RARE /LPF 02/04/20 17:20 Urine Ascorbic Acid NEGATIVE (NEGATIVE) 02/04/20 17:20 Urine Opiates Screen NEGATIVE 02/04/20 17:20 Urine Methadone Screen NEGATIVE 02/04/20 17:20 Ur Barbiturates Screen NEGATIVE 02/04/20 17:20 Ur Phencyclidine Scrn NEGATIVE 02/04/20 17:20 Ur Amphetamines Screen NEGATIVE 02/04/20 17:20 U Benzodiazepines Scrn NEGATIVE 02/04/20 17:20 Urine Cocaine Screen NEGATIVE 02/04/20 17:20 U Marijuana (THC) Screen UNCONFIRMED POSITIVE 02/04/20 17:20 COVID-19 Source NASOPHARYNGEAL 02/04/20 17:15 COVID-19 (JASIEL) NOT DETECTED 02/04/20 17:15 Blood Type O NEGATIVE 02/04/20 17:42 Antibody Screen POSITIVE 02/04/20 17:42 Antibody Identification RHOGAM INDUCED ANTI-D 02/04/20 17:42 Crossmatch See Detail 02/04/20 17:42 Plan Health Concerns: diabetes. pt denies that she has diabetes outside of . discussed high bs and need for primary care/tape weaver to manage. pt verbalized understanding and agrees to make appt with PCM LUIS A Plan of Treatment: follow up in one week at [facility] for incision check
[2020-02-08 13:21] VITALS: BP 149/78
== END 2020-02-08 16:00 | disposition home or self-care (01) | DRG 783 ==
LOC: 2N 08:32
PROVIDERS: ADMIT Obstetrics & Gynecology; ATTEND Obstetrics & Gynecology
PROC: 10D00Z1 Extraction of Products of Conception, Low, Open Approach (ICD-10-PCS; principal; 2020-02-06)
PROC: 0UL70CZ Occlusion of Bilateral Fallopian Tubes with Extraluminal Device, Open Approach (ICD-10-PCS; 2020-02-06)
DX: O30.043 Twin pregnancy, dichorionic/diamniotic, third trimester (principal); O24.12 Pre-existing type 2 diabetes mellitus, in childbirth; Z3A.37 37 weeks gestation of pregnancy; Z37.2 Twins, both liveborn; O34.211 Maternal care for low transverse scar from previous cesarean delivery; Z30.2 Encounter for sterilization; O99.89 Other specified diseases and conditions complicating pregnancy, childbirth and the puerperium; N73.6 Female pelvic peritoneal adhesions (postinfective); O99.334 Smoking (tobacco) complicating childbirth; F17.210 Nicotine dependence, cigarettes, uncomplicated; Z37.0 Single live birth; O99.02 Anemia complicating childbirth; D64.9 Anemia, unspecified; Z79.4 Long term (current) use of insulin; E11.9 Type 2 diabetes mellitus without complications; Z90.49 Acquired absence of other specified parts of digestive tract; Z03.818 Encounter for observation for suspected exposure to other biological agents ruled out
CPT/HCPCS: 1961; 36415; 59025; 80307; 81001; 82962; 85025; 85027; 86850; 86870; 86900; 86901; 86920; 86922; 87635; 88307; 94799; C9803; J0131; J1170; J1885; J2250; J2270; J2405; J2550; J2590; J3010; J3490